=== PATIENT | female | born 1935 | race Native Hawaiian/Other Pacific Islander ===

== ENCOUNTER 2018-06-28 06:32 | Day surgery (SDC) | payer OTHER ==
[2018-06-28] MEDS ORDERED: IV LACTATED RINGERS SOLUTION 1,000 ML BAG IV ONE (06:33)
[2018-06-28] MEDS ORDERED: KETOROLAC 0.5% OPHT DROP 3 ML BOTTLE ONE (06:48)
[2018-06-28] MEDS ORDERED: CYCLOPENTOLATE 1% OPHT DROP 2 ML BOTTLE ONE (06:48)
[2018-06-28] MEDS ORDERED: CIPROFLOXACIN 0.3% OPHT DROP 2.5 ML BOTTLE ONE (06:48)
[2018-06-28] MEDS ORDERED: PHENYLEPHRINE 2.5% OPHT DROP 2 ML BOTTLE ONE (06:49)
[2018-06-28] MEDS ORDERED: TROPICAMIDE 1% OPHT DROP 3 ML BOTTLE ONE (06:49)
[2018-06-28] MEDS ORDERED: BALANCED SALT IRRIG SOLN COMB1 500 ML, EPINEPHRINE-PF 1:1000 0.5 MG IO ONE ×2 (07:00)
[2018-06-28] MEDS ORDERED: TIMOLOL MALEATE 0.5% OPHT DROP 5 ML BOTTLE ONE (07:26)
[2018-06-28] MEDS ORDERED: MOXIFLOXACIN HCL 3 ML OPHT DROPS ONE (07:26)
[2018-06-28] MEDS ORDERED: NEO/POLYMYX B/DEXAME OPHT OINT 3.5 GM TUBE ONE (07:26)
[2018-06-28] MEDS ORDERED: LIDOCAINE-MPF 2% 5 ML VIAL ONE (07:26)
[2018-06-28] MEDS ORDERED: BUPIVACAINE PF 0.5% 30 ML VIAL ONE (07:27)
[2018-06-28] MEDS ORDERED: HYALURONIDASE,OVINE 200 UNITS/ML VIAL ONE (07:27)
[2018-06-28] MEDS ORDERED: TETRACAINE HCL 0.5% OPHT DROP 2 ML BOTTLE ONE (07:27)
[2018-06-28] MEDS ORDERED: ACETYLCHOLINE CHLORIDE 1% OPHT 1 EA KIT ONE (07:27)
[2018-06-28] MEDS ORDERED: BALANCED SALT IRRIG SOLN COMB2 15 ML IRRIG.SOLN ONE (07:27)
[2018-06-28] MEDS ORDERED: HYALURONATE SODIUM 12.8 MG/0.8 ML DISP.SYRIN ONE (07:28)
[2018-06-28] MEDS ORDERED: HYALURONATE SODIUM 8.5 MG/0.85 ML DISP.SYRIN ONE (07:28)
[2018-06-28] MEDS ORDERED: ALBUTEROL SULFATE 2.5 MG/3 ML NEBU ONE (07:47)
[2018-06-28] MEDS ORDERED: FENTANYL CITRATE 100 MCG/2 ML AMPUL ONE (07:52)
[2018-06-28] MEDS ORDERED: TRYPAN BLUE 0.5 ML DISP.SYRIN ONE (07:59)
[2018-06-28] MEDS ORDERED: BALANCED SALT IRRIG SOLN COMB1 0 ML ONE (08:32)
== END 2018-06-28 10:30 | disposition home or self-care (01) ==
LOC: DS 06:32
PROVIDERS: ATTEND Ophthalmology
DX: H25.011 Cortical age-related cataract, right eye (principal); J44.9 Chronic obstructive pulmonary disease, unspecified; I25.10 Atherosclerotic heart disease of native coronary artery without angina pectoris; M19.90 Unspecified osteoarthritis, unspecified site; I12.9 Hypertensive chronic kidney disease with stage 1 through stage 4 chronic kidney disease, or unspecified chronic kidney disease; N18.3 Chronic kidney disease, stage 3 (moderate); E04.1 Nontoxic single thyroid nodule; Z79.899 Other long term (current) drug therapy; C91.10 Chronic lymphocytic leukemia of B-cell type not having achieved remission; D64.9 Anemia, unspecified
CPT/HCPCS: 66984; 71045; 94664; J0171; J3010; J3471; J3490 ×2; J7120 ×2; J7321 ×2; Q9968; V2632; A4663